=== PATIENT | female | born 1995 | race Caucasian/White ===

== ENCOUNTER 2019-11-11 11:57 | Emergency (ER) | payer OTHER, SELFPAY ==
[2019-11-11 12:08] VITALS: BP 142/64; PULSE 80; RESP 18; TEMP 36.8; O2SAT 100
--- NOTE | 2019-11-11 12:35 | ED.SKABFB ---
HPI - Skin/Abscess/Foreign Bdy General Chief complaint: Skin/Abscess/Foreign Body Stated complaint: insect sting to face Source: patient Mode of arrival: ambulatory Limitations: no limitations History of Present Illness HPI narrative: The patient, previously mostly healthy, presents with skin eruption and swelling. Patient states she was visibly bitten by a bee yesterday. This occurred on her forearms and face; she now complains of right upper lid edema. There also is mild edema and redness of the affected extremities. No fever, URI?sinusitis, photophobia, discharge, eye pain inc with movement, shortness of breath, wheezing/coughing. The patient has been informed that they may have pre-hypertension or Hypertension based on a BP reading in the department. I recommend that the patient call the primary care provider listed on their discharge instructions or a physician of their choice this week to arrange follow up for further evaluation of possible pre-hypertension or Hypertension Related Data Home Medications Medication Instructions Recorded Confirmed No Home Medications 11/11/19 11/11/19 Allergies Allergy/AdvReac Type Severity Reaction Status Date / Time No Known Allergies Allergy Unverified 11/11/19 12:13 Review of Systems Review of Systems: Narrative: General/Constitutional: No weight loss,fever Eyes: + lid Redness,no discharge Ears/Nose/Throat: No: Epistaxis,ear discharge Respiratory: Denies: Hemoptysis Gastrointestinal: No Vomiting, Bleeding-rectal Skin: ++ Lumps, eruption Neurologic: No Focal Weakness,Sz Hematologic: Denies: Petechiae/Purpura Psychiatric: No: Suicida ideationl All Other Systems: Reviewed and Negative PMFSH Comments At time of signature, agree with nursing past medical, surgical, social and family history. There is no relevant family history pertinent to the presenting complaint Exam Narrative: Exam Narrative: General Appearance: Well-nourished/obese, Cooperative Normocephalic Eye: PERRLA, Conjunctiva clear, mild right periorbital edema that is not warm, tender Ear: External ear normal Nose: Normal nose, Nare clear Mouth/Throat: Normal appearing Supple Respiratory: Airway patent, No respiratory distress Musculoskeletal: Moves all extremities, Non tender Skin: Warm, Dry ; small ovoid insect bite/macules on left upper extremity Neurological: A&O x3, Normal affect Course Vital Signs Vital signs: Vital Signs Temperature 98.2 F 11/11/19 12:08 Pulse Rate 80 11/11/19 12:08 Respiratory Rate 18 11/11/19 12:08 Blood Pressure 142/64 H 11/11/19 12:08 Pulse Oximetry 100 11/11/19 12:08 Temperature 98.2 F 11/11/19 12:08 Pulse Rate 80 11/11/19 12:08 Respiratory Rate 18 11/11/19 12:08 Blood Pressure 142/64 H 11/11/19 12:08 Pulse Oximetry 100 11/11/19 12:08 Discharge Plan Discharge Clinical Impression: Insect bites Qualifiers: Encounter type: initial encounter Site of insect bite: head Site of insect bite of head: eyelid Laterality: left Qualified Code(s): S00.262A - Insect bite (nonvenomous) of left eyelid and periocular area, initial encounter Patient Disposition: Home, Self-Care Condition: Stable Instructions: Antibiotic Form Prescriptions: New prednisone 20 mg tablet 60 mg PO DAILY Qty: 9 RF: 0 mupirocin 2 % ointment 1 applic TOPICAL TID Qty: 30 RF: 0 cefuroxime axetil 500 mg tablet 500 mg PO Q12H Qty: 10 RF: 0 No Action No Home Medications RF: 0 Interventions: Discharge Disposition Last Done: 11/11/19 12:48 Follow-up/Referrals: UNKNOWN,DOCTOR [Primary Care Provider] - Discharge Date/Time: 11/11/19 12:40
== END 2019-11-11 12:40 | disposition home or self-care (01) ==
PROVIDERS: Emergency Provider Emergency Medicine
DX: S00.262A Insect bite (nonvenomous) of left eyelid and periocular area, initial encounter (principal); W57.XXXA Bitten or stung by nonvenomous insect and other nonvenomous arthropods, initial encounter
CPT/HCPCS: 99213; G0463

== ENCOUNTER 2024-05-20 18:01 | Emergency (ER) | payer OTHER, SELFPAY ==
[2024-05-20] VITALS (11 sets, daily range): BP systolic 64–142; BP diastolic 40–94; PULSE 82–115; RESP 18–24; TEMP 36.6; O2SAT 98–100
--- NOTE | ~2024-05-20 | XR_ITS ---
CHEST RADIOGRAPH, PA AND LATERAL CLINICAL HISTORY: shortness of breath AND CHEST TIGHTNESS . COMPARISON: None available TECHNIQUE: PA and lateral views of the chest. FINDINGS The cardiomediastinal silhouette is unremarkable. The lungs are clear. Visualized osseous structures and soft tissues are unremarkable. IMPRESSION: No focal infiltrate or effusion. Reviewed, dictated and finalized at location A. TED INSTRUMENTS INSPECTOR
--- NOTE | ~2024-05-20 | CT_ITS ---
EXAMINATION: CTA chest PE protocol DATE: 05/20/2024 19:56 TRAFFIC CONTROL OFFICER INDICATION: 28-year-old woman presents with shortness of breath. Pulmonary embolus suspected clinically TECHNIQUE: Computed tomographic angiography (CTA) of the chest was performed with 100 mL Omnipaque-35 0 intravenous contrast. The dose-length product was 468.24 mGy-cm. Maximum intensity projection 3D-re constructions of the aorta and other arteries were constructed by the technologist on a separate work station. COMPARISON: None. FINDINGS: No filling defect within the main or proximal pulmonary arteries. The main pulmonary artery is not enlarged. The thoracic aorta is unremarkable, without aneurysmal dilatation or dissection. The lungs are clear. Multiple stones are identified within the gallbladder, which is otherwise unremarkable. The bilateral kidneys enhance symmetrically. No acute compression fracture. No lytic or blastic lesions IMPRESSION: No pulmonary embolism. No aortic dissection. The lungs are clear. Cholelithiasis without cholecystitis. Reviewed, dictated and finalized at location A. FIC CONTROL OFFICER
--- NOTE | 2024-05-20 18:31 | ECG_ITS ---
Test Date: 2024-05-20 20:21:33 Measurements Intervals [place] Rate: 102 P: 57 MN: 153 QRS: 30 QRSD: 90 T: -2 QT: 295 QTc: 385 Interpretive Statements SINUS TACHYCARDIA NONSPECIFIC T-WAVE ABNORMALITY ABNORMAL RHYTHM ECG No previous ECG available for comparison Electronically Signed On 05-21-2024 11:53:28 LINE SERVICE TECHNICIAN by Leanna Elliott
--- NOTE | 2024-05-20 18:33 | ED_ITS ---
HPI - SOB/Dyspnea General Chief Complaint: Shortness of Breath/Dyspnea <Larissabelem Liu MULTI PURPOSE MACHINE OPERATOR - Last Filed: 05/20/24 18:37> Stated Complaint: SOB, sent from <Larissa Liu APRN - Last Filed: 05/20/24 18:37> Time Seen by Provider: 05/20/24 18:30 <Larissa Liu MULTI PURPOSE MACHINE OPERATOR - Last Filed: 05/20/24 18:37> Focused HPI: Patient is a 28-year-old female who presents to the ER with complaints of shortness of breath and chest pain started approximately 4 days ago. She reports she went to urgent care for evaluation and they sent her here for further evaluation. Patient denies any history of asthma, cigarette smoking, recent fevers, recent signs/symptoms of illness. She reports her only history is anxiety but it has not been formally diagnosed. Patient takes control pills but takes no other regular medications. GENERAL: Well-appearing, well-nourished, and in mild respiratory distress. HEAD: Normocephalic, atraumatic. CHEST: Clear to auscultation. ?Mild respiratory distress d/t SOB. HEART: Tachycardia and regular rhythm. ? NEURO: ?Alert and oriented x3. Patient screened in triage and initial orders placed.? ?Additional care and disposition to be based upon?diagnostic testing and treatment. <Larissa MelanieAmbar Liu MULTI PURPOSE MACHINE OPERATOR - Last Filed: 05/20/24 18:37> Focused HPI: Patient is a 28-year-old female who presents to the ER with complaints of shortness of breath and chest pain started approximately 4 days ago. She reports she went to urgent care for evaluation and they sent her here for further evaluation. Patient denies any history of asthma, cigarette smoking, recent fevers, recent signs/symptoms of illness. She reports her only history is anxiety but it has not been formally diagnosed. Patient takes control pills but takes no other regular medications. GENERAL: Well-appearing, well-nourished, and in mild respiratory distress. HEAD: Normocephalic, atraumatic. CHEST: Clear to auscultation. ?Mild respiratory distress d/t SOB. HEART: Tachycardia and regular rhythm. ? NEURO: ?Alert and oriented x3. Patient screened in triage and initial orders placed.? ?Additional care and disposition to be based upon?diagnostic testing and treatment. <Kaity Walter PA-C - Last Filed: 05/21/24 02:35> Source: patient <Kaity Walter PA-C - Last Filed: 05/21/24 02:35> Mode of arrival: ambulatory <Kaity Walter PA-C - Last Filed: 05/21/24 02:35> Limitations: no limitations <Kaity Walter PA-C - Last Filed: 05/21/24 02:35> History of Present Illness HPI Narrative: Agree with above HPI. States symptoms seem to be more persistent today which prompted her presentation Describes chest pain as a heaviness. Does admit to feeling anxious. <Kaity Walter PA-C - Last Filed: 05/21/24 02:35> Related Data Allergies/Adverse Reactions: Allergies Allergy/AdvReac Type Severity Reaction Status Date / Time No Known Allergies Allergy Verified 05/20/24 18:02 <Larissa Liu APRN - Last Filed: 05/20/24 18:37> Review of Systems 2 Review of Systems: All systems reviewed & are unremarkable except as noted in HPI. 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 HEAD: Normocephalic, atraumatic. RESPIRATORY: Airway patent, respirations nonlabored. Clear to auscultation bilaterally, no rales, rhonchi, wheezing. CARDIOVASCULAR: Regular rate and rhythm without murmurs, rubs, or gallops. MUSCULOSKELETAL: Moves all extremities. No gross deformities. No peripheral edema. No calf tenderness. SKIN: Warm, dry, normal color. NEURO: A&O X3. Speech clear. Cranial nerves II-XII grossly intact. Steady gait. No ataxic movements. PSYCHIATRIC: Anxious, tearful. Normal interaction. <Kaity Walter PA-C - Last Filed: 05/21/24 02:35> Course Vital Signs Vital signs: Vital Signs Temperature 97.9 F 05/20/24 18:23 Pulse Rate 115 H 05/20/24 18:23 Respiratory Rate 20 05/20/24 18:23 Blood Pressure 142/94 H 05/20/24 18:23 Pulse Oximetry 100 05/20/24 18:23 Oxygen Delivery Room Air 05/20/24 18:23 Temperature 97.9 F 05/20/24 18:23 Pulse Rate 74 05/21/24 00:47 Respiratory Rate 20 05/21/24 00:46 Blood Pressure 120/73 05/21/24 00:46 Pulse Oximetry 100 05/21/24 00:46 Oxygen Delivery Room Air 05/20/24 23:39 <Larissa Liu, MULTI PURPOSE MACHINE OPERATOR - Last Filed: 05/20/24 18:37> Vital Signs Temperature 97.9 F 05/20/24 18:23 Pulse Rate 115 H 05/20/24 18:23 Respiratory Rate 20 05/20/24 18:23 Blood Pressure 142/94 H 05/20/24 18:23 Pulse Oximetry 100 05/20/24 18:23 Oxygen Delivery Room Air 05/20/24 18:23 Temperature 97.9 F 05/20/24 18:23 Pulse Rate 74 05/21/24 00:47 Respiratory Rate 20 05/21/24 00:46 Blood Pressure 120/73 05/21/24 00:46 Pulse Oximetry 100 05/21/24 00:46 Oxygen Delivery Room Air 05/20/24 23:39 <VICTORIA Spangler Last Filed: 05/21/24 02:35> MDM - SOB/Dyspnea MDM Narrative Medical decision making narrative: Patient presented to ED with several day history of shortness breath, chest heaviness. Does admit to feeling anxious. Patient was initially tachycardic upon arrival to the ED. This was resolved by the time of my evaluation. She does appear anxious on exam. EKG is without significant concerning ST changes. Troponin is undetectable. Very low suspicion for ACS. No risk factors for heart disease. Denying true chest pain. HEART score is 1 based on BMI. Chest x-ray is clear. CTA of chest was obtained from triage and also unremarkable. No evidence of PE. Lungs are clear. No other significant concerning findings. Cholelithiasis, no evidence of cholecystitis. Made patient aware of this. Viral swabs are negative. Remainder basic laboratory studies are unremarkable. Potassium was slightly low at 3.2. This was replaced orally. She does appear slightly dehydrated based on labs. Discussed this with patient. Advised her to drink plenty of fluids at home. Otherwise feel patient is safe for discharge home. Discussed that symptoms may be related to anxiety. She was given a small dose of Ativan here with improvement. Heart rate now in the 70s. Recommended close follow-up with PCP for further evaluation. Given strict return precautions. She agrees with plan. Discharged in stable condition. <Kaity Walter PA-C - Last Filed: 05/21/24 02:35> Medical Records Attestation: I reviewed the patient's medical records. <Kaity Walter PA-C - Last Filed: 05/21/24 02:35> Lab Data Attestation: I reviewed the patient's lab results. <Kaity Walter PA-C - Last Filed: 05/21/24 02:35> Result diagrams: 05/20/24 20:26 05/20/24 20:26 <Larissa Liu APRN - Last Filed: 05/20/24 18:37> Labs: Lab Results 05/20/24 05/20/24 05/20/24 Range/Units 20:26 20:32 20:36 WBC 10.6 H (4.5-10.0) K/mm3 RBC 4.90 (4.2-5.4) M/mm3 Hgb 14.0 (12.0-15.0) g/dL Hct 42.5 (37.0-47.0) % MCV 86.7 (80-100) fl MCH 28.6 (26-34) pg MCHC 32.9 (32-36) g/dl RDW 13.0 (11.5-14.5) % Plt Count 283 (150-375) k/mm3 MPV 8.9 (7.4-10.4) fl Immature Gran % (Auto) 0.2 (0-0.5) % Neut % (Auto) 60.0 (45.5-73.1) % Lymph % (Auto) 30.5 (18.3-44.2) % Parker % (Auto) 7.1 (2.6-8.5) % Eos % (Auto) 1.7 (0-4.4) % Baso % (Auto) 0.5 (0.2-1.2) % Lymph # (Auto) 3.23 H (0.9-3.2) K/mm3 [place] # (Auto) 0.8 H (0.1-0.6) K/mm3 Eos # (Auto) 0.2 (0-0.3) K/mm3 Baso # (Auto) 0.1 (0.0-0.1) K/mm3 Abs Immat Gran (auto) 0.02 (0.00-0.031) K/mm3 Absolute Neuts (auto) 6.4 (1.3-6.7) K/mm3 Absolute Nucleated RBC 0.000 (0.0-0.012) K/mm3 Nucleated RBC % 0.0 (0.0-0.2) % PT 13.4 (11.1-14.7) Seconds INR 1.0 APTT 25.6 (22.3-36.8) Seconds Sodium 138 (137-145) mmol/L Potassium 3.2 L (3.4-5.0) mmol/L Chloride 104 (98-107) mmol/L Carbon Dioxide 21 L (22-30) mmol/L Anion Gap 13 H (4-12) mmol/L BUN 7 (7-17) mg/dL Creatinine 0.70 (0.7-1.0) mg/dL Estim Creat Clear Calc 118 ml/min Estimated GFR > 60 (59 - ) Glucose 108 (65-110) mg/dL Calcium 9.3 (8.4-10.2) mg/dL Magnesium 2.2 (1.6-2.3) mg/dL Total Bilirubin 0.7 (0.2-1.3) mg/dL AST 26 (14-36) U/L ALT 14 (6-35) U/L Alkaline Phosphatase 80 (38-126) U/L Troponin I < 0.012 (0.000-0.034) ng/mL Total Protein 8.0 (6.3-8.2) g/dL Albumin 4.5 (3.5-5.1) g/dL Urine Color Yellow (Yellow) Urine Appearance Clear (Clear) Urine pH 6.5 (5.0-9.0) Ur Specific [place] > 1.045 H (1.001-1.035) Urine Protein Negative (Negative) mg/dL Urine Glucose (UA) Negative (Negative) mg/dL Urine Ketones Trace H (Negative) mg/dL Ur Blood (Man) Negative (Negative) Urine Nitrate Negative (Negative) Urine Bilirubin Negative (Negative) Urine Urobilinogen 0.2 (<2.0) mg/dL Leukocyte Esterase Rfl Negative (Negative) SHIREEN/UL POC Urine HCG, Qual Negative (Negative) Influenza A (RT-PCR) (Negative) Influenza B (RT-PCR) (Negative) RSV (RT-PCR) (Negative) SARS-CoV-2 RNA (RT-PCR) (Negative) 05/20/24 Range/Units 23:31 WBC (4.5-10.0) K/mm3 RBC (4.2-5.4) M/mm3 Hgb (12.0-15.0) g/dL Hct (37.0-47.0) % MCV (80-100) fl MCH (26-34) pg MCHC (32-36) g/dl RDW (11.5-14.5) % Plt Count (150-375) k/mm3 MPV (7.4-10.4) fl Immature Gran % (Auto) (0-0.5) % Neut % (Auto) (45.5-73.1) % Lymph % (Auto) (18.3-44.2) % Parker % (Auto) (2.6-8.5) % Eos % (Auto) (0-4.4) % Baso % (Auto) (0.2-1.2) % Lymph # (Auto) (0.9-3.2) K/mm3 [place] # (Auto) (0.1-0.6) K/mm3 Eos # (Auto) (0-0.3) K/mm3 Baso # (Auto) (0.0-0.1) K/mm3 Abs Immat Gran (auto) (0.00-0.031) K/mm3 Absolute Neuts (auto) (1.3-6.7) K/mm3 Absolute Nucleated RBC (0.0-0.012) K/mm3 Nucleated RBC % (0.0-0.2) % PT (11.1-14.7) Seconds INR APTT (22.3-36.8) Seconds Sodium (137-145) mmol/L Potassium (3.4-5.0) mmol/L Chloride (98-107) mmol/L Carbon Dioxide (22-30) mmol/L Anion Gap (4-12) mmol/L BUN (7-17) mg/dL Creatinine (0.7-1.0) mg/dL Estim Creat Clear Calc ml/min Estimated GFR (59 - ) Glucose (65-110) mg/dL Calcium (8.4-10.2) mg/dL Magnesium 2.2 (1.6-2.3) mg/dL Total Bilirubin (0.2-1.3) mg/dL AST (14-36) U/L ALT (6-35) U/L Alkaline Phosphatase (38-126) U/L Troponin I (0.000-0.034) ng/mL Total Protein (6.3-8.2) g/dL Albumin (3.5-5.1) g/dL Urine Color (Yellow) Urine Appearance (Clear) Urine pH (5.0-9.0) Ur Specific [place] (1.001-1.035) Urine Protein (Negative) mg/dL Urine Glucose (UA) (Negative) mg/dL Urine Ketones (Negative) mg/dL Ur Blood (Man) (Negative) Urine Nitrate (Negative) Urine Bilirubin (Negative) Urine Urobilinogen (<2.0) mg/dL Leukocyte Esterase Rfl (Negative) SHIREEN/UL POC Urine HCG, Qual (Negative) Influenza A (RT-PCR) Negative (Negative) Influenza B (RT-PCR) Negative (Negative) RSV (RT-PCR) Negative (Negative) SARS-CoV-2 RNA (RT-PCR) Negative (Negative) <Larissa Sami Liu, MULTI PURPOSE MACHINE OPERATOR - Last Filed: 05/20/24 18:37> Lab Results 05/20/24 05/20/24 05/20/24 Range/Units 20:26 20:32 20:36 WBC 10.6 H (4.5-10.0) K/mm3 RBC 4.90 (4.2-5.4) M/mm3 Hgb 14.0 (12.0-15.0) g/dL Hct 42.5 (37.0-47.0) % MCV 86.7 (80-100) fl MCH 28.6 (26-34) pg MCHC 32.9 (32-36) g/dl RDW 13.0 (11.5-14.5) % Plt Count 283 (150-375) k/mm3 MPV 8.9 (7.4-10.4) fl Immature Gran % (Auto) 0.2 (0-0.5) % Neut % (Auto) 60.0 (45.5-73.1) % Lymph % (Auto) 30.5 (18.3-44.2) % Parker % (Auto) 7.1 (2.6-8.5) % Eos % (Auto) 1.7 (0-4.4) % Baso % (Auto) 0.5 (0.2-1.2) % Lymph # (Auto) 3.23 H (0.9-3.2) K/mm3 [place] # (Auto) 0.8 H (0.1-0.6) K/mm3 Eos # (Auto) 0.2 (0-0.3) K/mm3 Baso # (Auto) 0.1 (0.0-0.1) K/mm3 Abs Immat Gran (auto) 0.02 (0.00-0.031) K/mm3 Absolute Neuts (auto) 6.4 (1.3-6.7) K/mm3 Absolute Nucleated RBC 0.000 (0.0-0.012) K/mm3 Nucleated RBC % 0.0 (0.0-0.2) % PT 13.4 (11.1-14.7) Seconds INR 1.0 APTT 25.6 (22.3-36.8) Seconds Sodium 138 (137-145) mmol/L Potassium 3.2 L (3.4-5.0) mmol/L Chloride 104 (98-107) mmol/L Carbon Dioxide 21 L (22-30) mmol/L Anion Gap 13 H (4-12) mmol/L BUN 7 (7-17) mg/dL Creatinine 0.70 (0.7-1.0) mg/dL Estim Creat Clear Calc 118 ml/min Estimated GFR > 60 (59 - ) Glucose 108 (65-110) mg/dL Calcium 9.3 (8.4-10.2) mg/dL Magnesium 2.2 (1.6-2.3) mg/dL Total Bilirubin 0.7 (0.2-1.3) mg/dL AST 26 (14-36) U/L ALT 14 (6-35) U/L Alkaline Phosphatase 80 (38-126) U/L Troponin I < 0.012 (0.000-0.034) ng/mL Total Protein 8.0 (6.3-8.2) g/dL Albumin 4.5 (3.5-5.1) g/dL Urine Color Yellow (Yellow) Urine Appearance Clear (Clear) Urine pH 6.5 (5.0-9.0) Ur Specific [place] > 1.045 H (1.001-1.035) Urine Protein Negative (Negative) mg/dL Urine Glucose (UA) Negative (Negative) mg/dL Urine Ketones Trace H (Negative) mg/dL Ur Blood (Man) Negative (Negative) Urine Nitrate Negative (Negative) Urine Bilirubin Negative (Negative) Urine Urobilinogen 0.2 (<2.0) mg/dL Leukocyte Esterase Rfl Negative (Negative) SHIREEN/UL POC Urine HCG, Qual Negative (Negative) Influenza A (RT-PCR) (Negative) Influenza B (RT-PCR) (Negative) RSV (RT-PCR) (Negative) SARS-CoV-2 RNA (RT-PCR) (Negative) 05/20/24 Range/Units 23:31 WBC (4.5-10.0) K/mm3 RBC (4.2-5.4) M/mm3 Hgb (12.0-15.0) g/dL Hct (37.0-47.0) % MCV (80-100) fl MCH (26-34) pg MCHC (32-36) g/dl RDW (11.5-14.5) % Plt Count (150-375) k/mm3 MPV (7.4-10.4) fl Immature Gran % (Auto) (0-0.5) % Neut % (Auto) (45.5-73.1) % Lymph % (Auto) (18.3-44.2) % Parker % (Auto) (2.6-8.5) % Eos % (Auto) (0-4.4) % Baso % (Auto) (0.2-1.2) % Lymph # (Auto) (0.9-3.2) K/mm3 [place] # (Auto) (0.1-0.6) K/mm3 Eos # (Auto) (0-0.3) K/mm3 Baso # (Auto) (0.0-0.1) K/mm3 Abs Immat Gran (auto) (0.00-0.031) K/mm3 Absolute Neuts (auto) (1.3-6.7) K/mm3 Absolute Nucleated RBC (0.0-0.012) K/mm3 Nucleated RBC % (0.0-0.2) % PT (11.1-14.7) Seconds INR APTT (22.3-36.8) Seconds Sodium (137-145) mmol/L Potassium (3.4-5.0) mmol/L Chloride (98-107) mmol/L Carbon Dioxide (22-30) mmol/L Anion Gap (4-12) mmol/L BUN (7-17) mg/dL Creatinine (0.7-1.0) mg/dL Estim Creat Clear Calc ml/min Estimated GFR (59 - ) Glucose (65-110) mg/dL Calcium (8.4-10.2) mg/dL Magnesium 2.2 (1.6-2.3) mg/dL Total Bilirubin (0.2-1.3) mg/dL AST (14-36) U/L ALT (6-35) U/L Alkaline Phosphatase (38-126) U/L Troponin I (0.000-0.034) ng/mL Total Protein (6.3-8.2) g/dL Albumin (3.5-5.1) g/dL Urine Color (Yellow) Urine Appearance (Clear) Urine pH (5.0-9.0) Ur Specific [place] (1.001-1.035) Urine Protein (Negative) mg/dL Urine Glucose (UA) (Negative) mg/dL Urine Ketones (Negative) mg/dL Ur Blood (Man) (Negative) Urine Nitrate (Negative) Urine Bilirubin (Negative) Urine Urobilinogen (<2.0) mg/dL Leukocyte Esterase Rfl (Negative) SHIREEN/UL POC Urine HCG, Qual (Negative) Influenza A (RT-PCR) Negative (Negative) Influenza B (RT-PCR) Negative (Negative) RSV (RT-PCR) Negative (Negative) SARS-CoV-2 RNA (RT-PCR) Negative (Negative) <Kaity Walter PA-C - Last Filed: 05/21/24 02:35> Imaging Data Attestation: I personally reviewed and interpreted this imaging study as follows: < Kaity Walter PA-C Last Filed: 05/21/24 02:35> Radiologist's impression: ITS Impressions Chest X-Ray 05/20/24 19:15 IMPRESSION: No focal infiltrate or effusion. Chest CTA 05/20/24 19:33 IMPRESSION: No pulmonary embolism. No aortic dissection. The lungs are clear. Cholelithiasis without cholecystitis. <VICTORIA Spangler Last Filed: 05/21/24 02:35> ECG Data EKG #1: Attestation: I personally reviewed and interpreted this ECG as follows: <VICTORIA Spangler Last Filed: 05/21/24 02:35> ECG completion date: 05/20/24 <VICTORIA Spangler Last Filed: 05/21/24 02:35> ECG completion time: 20:21 <VICTORIA Spangler Last Filed: 05/21/24 02:35> EKG Interpretation: tachycardia (102), sinus rhythm and non-specific ST changes <VICTORIA Spangler Last Filed: 05/21/24 02:35> Discharge Plan Discharge Clinical Impression: Shortness of breath, Dehydration <Larissa Liu APRN - Last Filed: 05/20/24 18:37> Patient Disposition: Home, Self-Care <Larissabelem Liu APRN - Last Filed: 05/20/24 18:37> Condition: Stable <Larissa Liu APRN - Last Filed: 05/20/24 18:37> Instructions: Antibiotic Form, Dehydration (ED), Dyspnea (ED), Shortness of Breath (ED) <Larissa Liu APRN - Last Filed: 05/20/24 18:37> Additional Instructions: Your workup here was reassuring. Continue to monitor symptoms. Stay well hydrated at home. Follow-up with your primary care doctor for further evaluation. Return to the ED if you experience worsening or severe symptoms, passing out, chest pain, unable to keep down food or drink, pain or swelling in legs, or any other symptoms of concern. <Larissa Liu APRN - Last Filed: 05/20/24 18:37> Patient Language: Polish <Larissa Liu APRN - Last Filed: 05/20/24 18:37> Prescriptions: No Action norethindrone-e.estradiol-iron [Loestrin Fe 05/17 (28-Day)] 1 mg-20 mcg (21)/75 mg (7) tablet 1 tablet PO DAILY Qty: 84 3RF <Larissa Liu APRN - Last Filed: 05/20/24 18:37> Follow-up/Referrals: UNKNOWN,DOCTOR [Primary Care Provider] - <Larissa Liu APRN - Last Filed: 05/20/24 18:37> Time of Disposition: 00:49 <Larissa Liu APRN - Last Filed: 05/20/24 18:37> 00:49 <Kaity Walter PA-C - Last Filed: 05/21/24 02:35> Quality HEART score for chest pain patients History: slightly suspicious <Kaity Walter PA-C - Last Filed: 05/21/24 02:35> ECG: normal <VICTORIA Spangler Last Filed: 05/21/24 02:35> Age: < or = to 45 years <VICTORIA Spangler Last Filed: 05/21/24 02:35> Risk factors: 1 or 2 risk factors <VICTORIA Spangler Last Filed: 05/21/24 02:35> Troponin: < or = to 1x normal limit <VICTORIA Spangler Last Filed: 05/21/24 02:35> Heart score: 1 <VICTORIA Spangler Last Filed: 05/21/24 02:35>
[2024-05-20] MEDS: IPRATROPIUM 0.5 MG/ALBUTEROL SULFATE 2.5 MG AMPUL.NEB 3 ML INHALATION (20:02)
[2024-05-20 20:34] LABS: Basophils Absolute Auto 0.1 K/mm3 (0.0-0.1); Basophils Percent Auto 0.5 % (0.2-1.2); Eosinophils Absolute Auto 0.2 K/mm3 (0-0.3); Eosinophils Percent Auto 1.7 % (0-4.4); Hematocrit 42.5 % (37.0-47.0); Immature Granulocyte Absolute 0.02 K/mm3 (0.00-0.031); Immature Granulocyte Percent A 0.2 % (0-0.5); Lymphocytes Absolute Auto 3.23 K/mm3 (0.9-3.2); Lymphocytes Percent Auto 30.5 % (18.3-44.2); Mean Corpuscular HGB Conc 32.9 g/dl (32-36); Mean Corpuscular Hemoglobin 28.6 pg (26-34); Mean Corpuscular Volume 86.7 fl (80-100); Mean Platelet Volume 8.9 fl (7.4-10.4); Monocytes Absolute Auto 0.8 K/mm3 (0.1-0.6); Monocytes Percent Auto 7.1 % (2.6-8.5); Neutrophils Absolute Auto 6.4 K/mm3 (1.3-6.7); Platelet Count Result 283 k/mm3 (150-375); White Blood Count 10.6 K/mm3 (4.5-10.0)
[2024-05-20 20:37] LABS: BEDSIDEPREGUCG Negative (Negative)
[2024-05-20 20:40] LABS: Add Urine Microscopic? NO; Appearance Urine Clear (Clear); Bilirubin Urine Negative (Negative); Blood Urine Negative (Negative); Color Urine Yellow (Yellow); Glucose Urine UA Negative (Negative); Ketones Urine Trace mg/dL (Negative); Leukocyte Esterase Ur Negative LEU/UL (Negative); Nitrate Urine Negative (Negative); Protein Urine Negative (Negative); Specific Grav Ur > 1.045 (1.001-1.035); Urobilinogen Urine 0.2 mg/dL (<2.0); pH Urine 6.5 (5.0-9.0)
[2024-05-20 20:44] LABS: Alanine Aminotransferase 14 U/L (6-35); Albumin Level 4.5 g/dL (3.5-5.1); Alkaline Phosphatase 80 U/L (38-126); Anion Gap 13 mmol/L (4-12); Aspartate Amino Transferase 26 U/L (14-36); Bilirubin,Total 0.7 mg/dL (0.2-1.3); Blood Urea Nitrogen 7 mg/dL (7-17); Calcium 9.3 mg/dL (8.4-10.2); Carbon Dioxide 21 mmol/L (22-30); Chloride 104 mmol/L (98-107); Estimated CRCL calculation 118 ml/min; Estimated Glomerular Filt Rate > 60; Glucose 108 mg/dL (65-110); Magnesium 2.2 mg/dL (1.6-2.3); Potassium 3.2 mmol/L (3.4-5.0); Sodium 138 mmol/L (137-145)
[2024-05-20 20:45] LABS: Partial Thromboplastin Time 25.6 Seconds (22.3-36.8); Prothrombin Time 13.4 Seconds (11.1-14.7)
[2024-05-20 20:55] LABS: Troponin I < 0.012 ng/mL (0.000-0.034)
[2024-05-20] MEDS: POTASSIUM CHLORIDE 20 MEQ ER TABLET 40 MEQ PO (23:35)
[2024-05-20 23:45] LABS: Magnesium 2.2 mg/dL (1.6-2.3)
[2024-05-21 00:12] LABS: Influenza A QL RT-PCR Negative (Negative); Influenza B QL RT-PCR Negative (Negative); RSV RNA, RT-PCR Negative (Negative); SARS-CoV-2 RNA PCR Negative (Negative)
[2024-05-21 00:16] VITALS: BP 124/77; PULSE 91; RESP 20; O2SAT 100
[2024-05-21] MEDS: LORazepam (*CRX) 0.5 MG TABLET PO (00:20)
[2024-05-21 00:46] VITALS: BP 120/73; PULSE 83; RESP 20; O2SAT 100
[2024-05-21 00:47] VITALS: PULSE 74
[2024-05-21 08:38] LABS: Estimated CRCL calculation 104 ml/min; Estimated Glomerular Filt Rate > 60
== END 2024-05-21 01:06 | disposition home or self-care (01) ==
PROVIDERS: Registered Nurse; Emergency Provider Physician Assistant
DX: R06.02 Shortness of breath (principal); E86.0 Dehydration; Z20.822 Contact with and (suspected) exposure to COVID-19
CPT/HCPCS: 36415; 71046; 71275; 80053; 81003; 81025; 82565; 83735; 84484; 85025; 85610; 85730; 87637; 93005; 94640; 99284; A9270; Q9967